=== PATIENT | female | born 1950 | race Caucasian/White ===

== ENCOUNTER → 2016-06-01 | Outpatient (CLI) | payer MEDICARE ==
--- NOTE | 2016-06-01 13:01 | Diagnostic Imaging Report ---
Thoracic spine. INDICATION: Back pain. FINDINGS: AP, lateral, and swimmer's views were obtained. There are no prior studies available for comparison. The AP view does show that there is levoscoliosis at the thoracolumbar junction. The alignment of the thoracic vertebrae is otherwise within normal limits. 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 There is no fracture or acute bony abnormality evident. There is no sign of a paraspinal mass. IMPRESSION: 1. There is no evidence for an acute bony abnormality. 2. There is levoscoliosis of the thoracolumbar junction. 3. If clinical concern regarding an underlying abnormality persists, then MRI would be recommended for further study. Dictated by: Dictated on workstation # [id number]
== END ==
LOC: RAD 10:25
PROVIDERS: ATTEND Pain Medicine Pain Medicine
DX: M54.6 Pain in thoracic spine (principal)
CPT/HCPCS: 72072

== ENCOUNTER → 2016-06-06 | Outpatient (CLI) | payer MEDICARE ==
[~2016-06-06] VITALS: Ht 152.4 cm; Wt 59.0 kg
[~2016-06-06] MED LIST: BUPIVACAINE 0.25% 30 ML (SENSORCAINE) VIAL ONE; DEXAMETHASONE PF 10 MG/ML (DECADRON) VIAL ONE; TRIAMCINOLONE ACET (KENALOG-40) 40 MG/ML 1 ML VIAL ONE
[2016-06-06 13:29] VITALS: BP 136/78
[2016-06-06 13:48] VITALS: BP 151/79
--- NOTE | 2016-06-06 14:45 | Pain Medicine-Procedure ---
Procedure Pre-Op/Post-Op Diagnosis Diagnosis: disc disorder with radiculopathy, thoracic Indications for Operation Mid back pain Attending Surgeon Shantel Procedure Date of Service: Jun 06, 2016 Procedure: Thoracic epidural steroid injection at T11-T12 Level under Fluoroscopic Guidance Procedure: Pt was identified in the holding area. After risks, benefits, and alternatives were discussed with the patient, informed consent was obtained. An IV was placed by nursing staff prior to procedure. Patient was brought to the fluoroscopy suite and placed prone on the operating table. A time out was performed. Vital signs were monitored throughout the procedure. The patients mid back was prepped and draped in the usual sterile fashion. The patients skin was anesthetized using 1% Lidocaine. A 18 gauge tuohy needle was inserted and advanced to the T11-T12 epidural space under fluoroscopic guidance using the loss of resistance technique. The needle position was confirmed in the AP and lateral view. After negative aspiration 2 ml of non-ionic contrast was injected under live fluoroscopy which showed good spread of the contrast in the epidural space at the appropriate level, there was no intravascular or subarachnoid spread. Again, after negative aspiration, 3 ml of preservative free normal saline and 10 mg of dexamethasone was injected. The needle was removed and the patient was transferred to the recovery area in stable condition. And after a brief period of observation was discharged to home in stable condition with no new neurologic deficits. Complications None OCTAVIA STYLES MD Jun 06, 2016 2:45 pm
== END ==
LOC: CARD 12:46
PROVIDERS: ATTEND Pain Medicine Pain Medicine
DX: M51.14 Intervertebral disc disorders with radiculopathy, thoracic region (principal)
CPT/HCPCS: 62321

== ENCOUNTER 2016-08-22 12:18 | Outpatient (CLI) | payer MEDICARE ==
[~2016-08-22] VITALS: Ht 152.4 cm; Wt 59.0 kg
[2016-08-22] MEDS ORDERED: DEXAMETHASONE PF 10 MG/ML (DECADRON) VIAL ONE (12:25)
[2016-08-22 12:35] VITALS: BP 167/95
[2016-08-22 13:12] VITALS: BP 167/80
--- NOTE | 2016-08-22 14:54 | Pain Medicine-Procedure ---
Procedure Pre-Op/Post-Op Diagnosis Diagnosis: disc disorder with radiculopathy, thoracic Indications for Operation Mid back pain Attending Surgeon Shantel Procedure Date of Service: August 22, 2016 Procedure: Thoracic epidural steroid injection at T11-T12 Level under Fluoroscopic Guidance Procedure: Pt was identified in the holding area. After risks, benefits, and alternatives were discussed with the patient, informed consent was obtained. Patient was brought to the fluoroscopy suite and placed prone on the operating table. A time out was performed. Vital signs were monitored throughout the procedure. The patients midback was prepped and draped in the usual sterile fashion. The patients skin was anesthetized using 1% Lidocaine. A 18 gauge tuohy needle was inserted and advanced to the epidural space under fluoroscopic guidance using the loss of resistance technique. The needle position was confirmed in the AP and lateral view. After negative aspiration 2 ml of non-ionic contrast was injected under live fluoroscopy which showed good spread of the contrast in the epidural space at the appropriate level, there was no intravascular or subarachnoid spread. Again, after negative aspiration, 3 ml of preservative free normal saline and 10 mg of dexamethasone was injected. The needle was removed and the patient was transferred to the recovery area in stable condition. And after a brief period of observation was discharged to home in stable condition with no new neurologic deficits. Complications None OCTAVIA STYLES MD August 22, 2016 2:54 pm
== END 2016-08-22 13:14 | disposition home or self-care (01) ==
LOC: CARD 12:18
PROVIDERS: ATTEND Pain Medicine Pain Medicine
DX: M51.14 Intervertebral disc disorders with radiculopathy, thoracic region (principal)
CPT/HCPCS: 62321